=== PATIENT | male | born 1945 | race Caucasian/White ===

== ENCOUNTER 2024-07-04 09:40 | Day surgery (SDC) | payer MEDICARE ==
[2024-07-04] MEDS ORDERED: LACTATED RINGERS 1,000 ML BAG ONE (10:15)
[2024-07-04] MEDS ORDERED: PROPOFOL 10 MG/ML 20 ML VIAL IV ONE (11:18)
--- NOTE | 2024-07-27 15:09 | P.PCN ---
Date of Procedure: 07/04/24 Procedure(s) Performed: Patient and him for the procedure was performed on 07/04/2024 Procedure performed colonoscopy with snare polypectomy and biopsy and tattooing with Janae ink Procedure: The scope was advanced all the way into the cecum. In the ascending colon there was a 1 cm polyp that was removed by snare polypectomy. In the rectosigmoid colon there was a 4 to 5 mm brown polypoid lesion extending from 16 to 24 cm from the anal verge and multiple biopsies were done from this area following followed by tattooing with Janae ink.
== END 2024-07-04 12:40 | disposition home or self-care (01) ==
LOC: ORWHC2ENDO 09:40
PROVIDERS: ATTEND Internal Medicine Gastroenterology
DX: Z12.11 Encounter for screening for malignant neoplasm of colon (principal); D12.2 Benign neoplasm of ascending colon; D12.5 Benign neoplasm of sigmoid colon; H91.90 Unspecified hearing loss, unspecified ear; Z79.899 Other long term (current) drug therapy; Z98.890 Other specified postprocedural states; Z86.010 Personal history of colon polyps
CPT/HCPCS: 45380; 45385; 88305

== ENCOUNTER → 2024-08-01 | Outpatient (CLI) | payer MEDICARE ==
[2024-08-01 18:15] LABS: Basophils # (A) 0.05 X 10*3/uL (0.00-0.10); Basophils % (A) 0.5 %; Eosinophils # (A) 0.29 X 10*3/uL (0.04-0.35); Eosinophils % (A) 2.9 %; HCT 44.4 % (39.6-50.0); HGB 14.7 g/dL (13.0-17.0); Lymphocytes # (A) 2.32 X 10*3/uL (0.90-5.00); Lymphocytes % (A) 23.6 %; MCH 31.9 pg (27.0-32.0); MCHC 33.1 g/dL (32.0-37.0); MCV 96.3 FL (80.0-97.0); Mean Platelet Volume 10.4 FL (9.5-12.2); Monocytes % (A) 11.2 %; NRBC Per 100 WBC 0 X 10*3/uL (0.00-0.01); Neutrophils # (A) 6.05 X 10*3/uL (1.80-7.70); Neutrophils % (A) 61.5 %; Platelet Count 317 X 10*3/uL (140-440); RBC 4.61 X 10*6/uL (4.40-5.60); WBC 9.84 X 10*3/uL (4.50-10.00)
== END | disposition home or self-care (01) ==
LOC: LABPAT 13:55
PROVIDERS: ATTEND Surgery
DX: Z01.818 Encounter for other preprocedural examination (principal)
CPT/HCPCS: 85025; 86850; 86900; 86901

== ENCOUNTER 2024-08-06 07:02 | Inpatient (IN) | payer MEDICARE ==
[~2024-08-06 07:02] MED LIST: HYDROmorphone 0.5 MG/0.5 ML SYRINGE IVP PRN
[2024-08-06] MEDS: IV FLUID CONTINUATION 1,000 ML IV ONE ×2 (07:59→10:43)
[2024-08-06] MEDS: LACTATED RINGERS 1,000 ML IV SCH (08:00)
[2024-08-06] MEDS: ACETAMINOPHEN TAB 500 MG TAB PO PRN (08:07)
[2024-08-06] MEDS: MIDAZOLAM 2 MG/2 ML VIAL IV PRN (08:11)
[2024-08-06] MEDS: ONDANSETRON 4 MG/2 ML VIAL IVP ONE (08:13)
[2024-08-06] MEDS: DEXAMETHASONE SOD PHOSPHATE 4 MG/ML 1 ML VIAL IV ONE (08:14)
[2024-08-06] MEDS: HEPARIN SODIUM,PORCINE 5,000 UNIT/ML 1 ML VIAL SQ PRN (08:15)
[2024-08-06] MEDS ORDERED: NALOXONE 0.4 MG/ML 1 ML VIAL IV PRN (08:37)
--- NOTE | 2024-08-06 08:37 | P.ANPRN ---
Procedure Note - Anesthesia - Epidural/Spinal Epidural Continuous Time Out Performed: Yes Date of Procedure: 08/06/24 Procedure Start Time: 08:10 Procedure Stop Time: 08:18 Location of Patient: PreOp Indication: Acute Post-Operative Pain, Analgesia, Requested by Surgeon Sedation Type: Sedate with meaningful contact maintained Preparation: Sterile Prep Position: Sitting Catheter: Indwelling Needle Guage: 18 Narrative: Test dose with 3 mL of 1.5% lidocaine with epinephrine. Negative signs or symptoms. Needle entry site L2-L3. Negative CSF, negative blood, negative paresthesia. Blood Aspirated: No Pain Paresthesia on Injection Noted: No Events: Uneventful and Well Tolerated
[2024-08-06] MEDS: ALVIMOPAN 12 MG CAPSULE PO STA (08:39)
[2024-08-06] MEDS ORDERED: SUCCINYLCHOLINE CHLORIDE 200 MG/10 ML VIAL IV ONE (09:20)
[2024-08-06] MEDS ORDERED: PROPOFOL 10 MG/ML 20 ML VIAL IV ONE (09:20)
[2024-08-06] MEDS ORDERED: GLYCOPYRROLATE 0.2 MG/ML 2 ML VIAL ONE (09:20)
[2024-08-06] MEDS ORDERED: PHENYLEPHRINE-0.9% NACL SYG 1,000 MCG/10 ML SYRINGE ONE (09:20)
[2024-08-06] MEDS ORDERED: fentaNYL (PF) 50 MCG/ML 2 ML AMP ONE (09:20)
[2024-08-06] MEDS ORDERED: ROCURONIUM 10 MG/ML (5 ML VIAL) IV ONE (09:20)
[2024-08-06] MEDS ORDERED: LIDOCAINE 1% INJ 10MG/ML (20 ML MDV) ONE (09:20)
[2024-08-06] MEDS ORDERED: NEOSTIGMINE 1 MG/ML 10 ML VIAL ONE (09:20)
[2024-08-06 09:27] LABS: ALT 16 U/L (4-49); AST 24 U/L (17-59); African American GFR (CKD) 72 (>60 ml/min/1.73 sqM); Albumin 3.5 g/dL (3.5-5.0); Alkaline Phosphatase 64 U/L (38-126); Anion Gap 7 mmol/L; Blood Urea Nitrogen 17 mg/dL (9-20); Calcium 8.9 mg/dL (8.4-10.2); Carbon Dioxide 29 mmol/L (22-30); Chloride 105 mmol/L (98-107); Glucose 94 mg/dL (74-99); Non-African American GFR(CKD) 62 (>60 ml/min/1.73 sqM); Potassium 3.9 mmol/L (3.5-5.1); Sodium 141 mmol/L (137-145); Total Bilirubin 0.8 mg/dL (0.2-1.3); Total Protein 6.4 g/dL (6.3-8.2)
[2024-08-06] MEDS: metroNIDAZOLE-NS PMX 500 MG in SALINE 1 100ML.BAG IVPB PRN (09:59)
[2024-08-06] MEDS ORDERED: ONDANSETRON 4 MG/2 ML VIAL IVP PRN (11:26)
[2024-08-06] MEDS ORDERED: HYDROmorphone 1 MG/ML 1 ML SYRINGE IVP PRN (11:26)
--- NOTE | 2024-08-06 11:47 | P.OP ---
Date of Procedure: 08/06/24 Preoperative Diagnosis: Colon polyp Postoperative Diagnosis: Deferred the pathology Procedure(s) Performed: Low anterior resection Anesthesia: ADA Surgeon: Billy Rice Estimated Blood Loss (ml): 25 Pathology: other (Rectosigmoid) Condition: stable Disposition: PACU Description of Procedure: The patient was placed on the operative table in the supine position. He received general endotracheal paresthesia. He was then placed in the dorsal thigh position. His abdomen was prepped and draped you sterile fashion. A low midline skin incision was made. Then use electrocautery the abdominal wall was divided. The Bookwalter tract placed the wound. The colon was examined. The patient had a tattoo senthil in the distal rectum. The large colon polyp in the palpated at the rectosigmoid junction. An enterotomy was made in the sigmoid colon. And then the anvil for the 29 mm EEA stapler was placed into the colon. And then the colon was transected with a BLANCA stapler. The enterotomy was closed with 3-0 GI silk suture. The enterotomy was on the specimen side. . Then using the LigaSure device the mesentery of the rectosigmoid was divided. The rectum was then transected with a contour stapler. Next the operator assistant i cementing went below. The anus was dilated with the anal dilators. In the 29 mm EEA stapler is placed in the patient's anus and the spike was driven through the anterior rectal wall. The endoscope to the stapler. The staple was then closed and fired. 2 intact tissue rings were withdrawn. The rectum was insufflated with air insufflation the emergency sigmoidoscope and there was no evidence of extravasation. The eye was irrigated. There is no bleeding seen. The fascia closed looped #1 PDS suture. Skin was low linh. Patient Toller procedure well. He sent to recovery room in stable condition.
[2024-08-06] MEDS: D5-0.45% NACL WITH KCL 20MEQ/L 1,000 ML IV SCH (15:36)
[2024-08-06] MEDS: HEPARIN SODIUM,PORCINE 5,000 UNIT/ML 1 ML VIAL SQ SCH (15:41)
[2024-08-06] MEDS: BENZOCAINE/MENTHOL LOZENG 1 EACH LOZENGE MUCOUS MEM PRN (17:24)
[2024-08-06] MEDS: FAMOTIDINE 20 MG/2 ML VIAL IV SCH (21:32)
--- NOTE | 2024-08-07 08:32 | P.PN ---
Progress Note - Text Progress Note Date: 08/07/24 Postoperative day # status post low anterior resection ,epidural catheter placed for postoperative analgesia, patient doing well epidural site okay, patient currently on combination of epidural infusion solution of Ropivacaine 0.0625% and Dilaudid 20 g per mL the infusion rate at 8 ml per hour , patient had no motor deficit epidural site okay , vital signs stable ,VAS 2 /10 , Assessment and plan= post operative day #1 patient doing well ,pain well controlled , there is no anesthesia related complications
[2024-08-07] MEDS: ALVIMOPAN 12 MG CAPSULE PO SCH (09:16)
--- NOTE | 2024-08-07 10:50 | P.CONS ---
History of Present Illness - History of Present Illness Patient is a pleasant 78-year-old male admitted for complaint of colonic polyp a nd underwent rectosigmoid resection. Patient is still coming out of anesthesia did not provide me much of the history although clinically doing well he is on oxygen postsurgery. REVIEW OF SYSTEMS: All other systems are negative except those mentioned in the HPI PHYSICAL EXAMINATION: GENERAL: The patient is alert and oriented x3, not in any acute distress. Well developed, well nourished. HEENT: Pupils are round and equally reacting to light. EOMI. No scleral icterus. No conjunctival pallor. Normocephalic, atraumatic. No pharyngeal erythema. No thyromegaly. CARDIOVASCULAR: S1 and S2 present. No murmurs, rubs, or gallops. PULMONARY: Chest is clear to auscultation, no wheezing or crackles. ABDOMEN: Soft, nontender, nondistended, normoactive bowel sounds. No palpable organomegaly. MUSCULOSKELETAL: No joint swelling or deformity. EXTREMITIES: No cyanosis, clubbing, or pedal edema. NEUROLOGICAL: Gross neurological examination did not reveal any focal deficits. SKIN: No rashes. Assessment and plan -Rectosigmoid resection patient is clinically doing well at this time. Will m onitor the patient for any complications in the perioperative. -COPD without any acute exacerbation patient quit smoking in 2003 DVT prophylaxis: As per primary service Past Medical History Past Medical History: No Reported History, COPD Additional Past Medical History / Comment(s): pt. not sure if he has COPD or not, seasonal allergies History of Any Multi-Drug Resistant Organisms: None Reported Past Surgical History: Back Surgery Additional Past Surgical History / Comment(s): SPINAL CORD SURGERY, neck surgery, skin cancer removed under Rt. eye Past Anesthesia/Blood Transfusion Reactions: No Reported Reaction Past Psychological History: No Psychological Hx Reported Smoking Status: Former smoker Past Alcohol Use History: Rare Additional Past Alcohol Use History / Comment(s): quit smoking 2003 Past Drug Use History: None Reported - Past Family History Father Family Medical History: Asthma, COPD Sister(s) Family Medical History: Asthma Daughter(s) Family Medical History: Asthma Medications and Allergies Home Medications Medication Instructions Recorded Confirmed Type Multivitamin [Men's Multi-Vitamin] 1 tab PO DAILY 10/14/16 08/06/24 History Cholecalciferol [Vitamin D3 (25 25 mcg PO DAILY 08/01/24 08/01/24 History Mcg = 1000 Iu)] Loratadine [Claritin] 10 mg PO DAILY 08/01/24 08/01/24 History Allergies Allergy/AdvReac Type Severity Reaction Status Date / Time No Known Allergies Allergy Verified 08/01/24 12:20 Physical Exam Vitals: Vital Signs Temp Pulse Resp BP Pulse Ox 08/07/24 07:18 98.0 F 77 18 105/62 94 L 08/07/24 00:42 98.7 F 74 16 120/67 93 L 08/06/24 19:13 98.3 F 73 16 106/62 97 08/06/24 16:37 96 08/06/24 13:30 97.5 F L 51 L 17 111/62 97 08/06/24 12:56 54 L 16 111/63 97 08/06/24 12:20 47 L 18 104/61 97 08/06/24 11:50 46 L 15 105/58 97 08/06/24 11:35 46 L 17 113/61 97 08/06/24 11:21 46 L 15 97/55 97 08/06/24 11:05 51 L 16 103/55 97 08/06/24 10:50 97.2 F L 58 L 17 110/69 96 Intake and Output 08/06/24 08/07/24 08/07/24 22:59 06:59 14:59 Output Total 850 Balance -850 Output: Urine 850 Other: Voiding Method Indwelling Catheter Indwelling Catheter Results CBC & Chem 7: 08/06/24 07:55
--- NOTE | 2024-08-07 11:20 | P.PN ---
Subjective Progress Note Date: 08/07/24 CHIEF COMPLAINT: Colon polyp HISTORY OF PRESENT ILLNESS: Patient is postop day #1 status post lower anterior resection for colon polyp. Patient has epidural for pain control. Patient reports his pain is controlled. Denies any nausea or vomiting. He does report having passed a small amount of flatus. Afebrile. Patient seen and examined with Dr. Rice PHYSICAL EXAM: VITAL SIGNS: Reviewed. GENERAL: Well-developed in no acute distress. ABDOMEN: Soft. Nondistended. Prevena wound VAC intact NEUROLOGIC: Alert and oriented. Cranial nerves II through XII grossly intact. ASSESSMENT: 1. Colon polyp status post lower anterior resection PLAN: -Follow-up on pathology results -Continue epidural for pain control -Continue Meadows catheter -Continue clear liquid diet -Continue IV fluids -Encourage patient to increase activity. Have patient up in chair and ambulating. -Consult PT OT -DVT prophylaxis subcu heparin and GI prophylaxis Pepcid Physician Jd Edwards Developer note has been reviewed by physician. Signing provider agrees with the documented findings, assessment, and plan of care. Objective - Vital Signs Vital signs: Vital Signs Temp 98.0 F 08/07/24 07:18 Pulse 77 08/07/24 07:18 Resp 18 08/07/24 07:18 BP 105/62 08/07/24 07:18 Pulse Ox 94 L 08/07/24 07:18 FiO2 Intake & Output 08/06/24 08/07/24 08/07/24 18:59 06:59 18:59 Intake Total 1500 Output Total 350 850 Balance 1150 -850 Weight 94 kg Intake: IV 1500 Output: Urine 300 850 Estimated Blood Loss 50 Other: Voiding Method Indwelling Catheter Indwelling Catheter - Labs CBC & Chem 7: 08/06/24 07:55
[2024-08-07] MEDS: ROPIVACAINE 250 MG, HYDROMORPHONE (PF) 5 MG in SODIUM CHLORIDE 0.9% 200 ML EPIDURAL PRN (16:26)
[2024-08-07] MEDS: METOCLOPRAMIDE 5 MG/ML 2 ML VIAL IVP PRN (17:58)
[2024-08-08] MEDS: LORATADINE 10 MG TAB PO SCH (09:01)
--- NOTE | 2024-08-08 09:21 | P.PN ---
Progress Note - Text 08/08/24 636am 78-year-old male status post explore lap, patient has an epidural catheter with a solution running at 8 cc an hour with a VAS of 0. No motor or sensory deficit noted. Plan to continue epidural infusion
[2024-08-08] MEDS: TAMSULOSIN 0.4 MG CAP.ER.24H PO SCH (12:35)
[2024-08-08 13:21] LABS: African American GFR (CKD) 84 (>60 ml/min/1.73 sqM); Anion Gap 6 mmol/L; Blood Urea Nitrogen 12 mg/dL (9-20); Calcium 8.1 mg/dL (8.4-10.2); Carbon Dioxide 24 mmol/L (22-30); Chloride 103 mmol/L (98-107); Glucose 143 mg/dL (74-99); Non-African American GFR(CKD) 72 (>60 ml/min/1.73 sqM); Potassium 4.9 mmol/L (3.5-5.1); Sodium 133 mmol/L (137-145)
[2024-08-08 13:22] LABS: Magnesium 1.7 mg/dL (1.6-2.3)
[2024-08-08 13:25] LABS: Basophils # (A) 0.1 k/uL (0-0.2); Basophils % (A) 1 %; Eosinophils # (A) 0.2 k/uL (0-0.7); Eosinophils % (A) 1 %; HCT 42.5 % (39.0-53.0); Lymphocytes # (A) 1.1 k/uL (1.0-4.8); Lymphocytes % (A) 8 %; MCH 32.8 pg (25.0-35.0); MCHC 33.1 g/dL (31.0-37.0); MCV 99.2 fL (80.0-100.0); Mean Platelet Volume 8.1; Monocytes # (A) 0.8 k/uL (0-1.0); Monocytes % (A) 6 %; Neutrophils # (A) 11.1 k/uL (1.3-7.7); Neutrophils % (A) 83 %; Platelet Count 246 k/uL (150-450); RBC 4.28 m/uL (4.30-5.90); RDW 12.9 % (11.5-15.5); WBC 13.4 k/uL (3.8-10.6)
--- NOTE | 2024-08-08 13:41 | P.PN ---
Subjective Progress Note Date: 08/08/24 CHIEF COMPLAINT: Colon polyp HISTORY OF PRESENT ILLNESS: Patient is postop day #2 status post lower anterior resection for colon polyp. Patient has epidural for pain control. Meadows catheter was discontinued and patient had evidence of urinary retention. Due to patient still having a epidural Meadows catheter is being reinserted. Patient reports his pain is tolerable. Denies any nausea or vomiting. Denies any flatus. Did have a temp of 100.2 last night. P Patient seen and examined with Dr. Rice PHYSICAL EXAM: VITAL SIGNS: Reviewed. GENERAL: Well-developed in no acute distress. ABDOMEN: Soft. Nondistended. Prevena wound VAC intact NEUROLOGIC: Alert and oriented. Cranial nerves II through XII grossly intact. ASSESSMENT: 1. Colon polyp status post lower anterior resection PLAN: -Follow-up on pathology results -Epidural and Meadows catheter to be discontinued tomorrow -Patient started on Flomax for urinary retention -Continue clear liquid diet -Continue IV fluids -Encourage patient to increase activity. Have patient up in chair and ambulating. Discussed with nursing staff -Consult PT OT -DVT prophylaxis subcu heparin and GI prophylaxis Pepcid Physician Lecturer In Computer Science note has been reviewed by physician. Signing provider agrees with the documented findings, assessment, and plan of care. Objective - Vital Signs Vital signs: Vital Signs Temp 98.3 F 08/08/24 12:43 Pulse 90 08/08/24 12:43 Resp 15 08/08/24 12:43 BP 109/64 08/08/24 12:43 Pulse Ox 92 L 08/08/24 12:43 FiO2 Intake & Output 08/07/24 08/08/24 08/08/24 18:59 06:59 18:59 Output Total 650 600 380 Balance -650 -600 -380 Output: Urine 650 600 380 Uretheral (Meadows) 600 380 Other: Voiding Method Indwelling Catheter Indwelling Catheter - Labs CBC & Chem 7: 08/08/24 12:50 08/08/24 12:50 Labs: Abnormal Lab Results - Last 24 Hours (Table) 08/08/24 08/08/24 Range/Units 12:50 12:50 WBC 13.4 H (3.8-10.6) k/uL RBC 4.28 L (4.30-5.90) m/uL Neutrophils # 11.1 H (1.3-7.7) k/uL Sodium 133 L (137-145) mmol/L Glucose 143 H (74-99) mg/dL Calcium 8.1 L (8.4-10.2) mg/dL
--- NOTE | 2024-08-09 06:31 | P.PN ---
Progress Note - Text Progress Note Date: 08/09/24 S/P Low Ant Resection. POD#3. Epidural rate is 0 cc/h (bag is empty. Pain control is good 0/10. No anesthesia related complications. Epidural was removed. Tip is intact. Pain control is per primary service.
[2024-08-09 08:44] LABS: HCT 38.6 % (39.6-50.0); HGB 12.8 g/dL (13.0-17.0); MCH 32.2 pg (27.0-32.0); MCHC 33.2 g/dL (32.0-37.0); MCV 97.2 FL (80.0-97.0); Mean Platelet Volume 10.5 FL (9.5-12.2); NRBC Per 100 WBC 0 X 10*3/uL (0.00-0.01); Platelet Count 265 X 10*3/uL (140-440); RBC 3.97 X 10*6/uL (4.40-5.60); RDW 12.6 % (11.5-14.5); WBC 13.94 X 10*3/uL (4.50-10.00)
[2024-08-09 08:45] LABS: BUN/Creat Ratio 9.45 Ratio (12.00-20.00); Blood Urea Nitrogen 10.4 mg/dL (9.0-27.0); Calcium 8.4 mg/dL (8.7-10.3); Carbon Dioxide 26.3 mmol/L (21.6-31.8); Chloride 101 mmol/L (96-109); Glucose 117 mg/dL (70-110); Magnesium 1.7 mg/dL (1.5-2.4); Potassium 4.4 mmol/L (3.5-5.5); Sodium 136 mmol/L (135-145)
--- NOTE | 2024-08-09 09:09 | P.PN ---
Subjective Progress Note Date: 08/08/24 - History of Present Illness Patient is a pleasant 78-year-old male admitted for complaint of colonic polyp and underwent rectosigmoid resection. Patient is still coming out of anesthesia did not provide me much of the history although clinically doing well he is on oxygen postsurgery. 08/08/2024 Patient is seen today sitting up in the chair and had to have indwelling fisher catheter replaced for retention. Patient has been started on flomax. Patient continues on clear liquids and has some abdominal discomfort and generalized weakness but remains on a pain pump at this time. No bowel activity as of yet. Patient reports to belching a lot, but no flatus. Patient is afebrile and wbc is mildly elevated. Patient denies any chest pain or shortness of breath and is currently on room air above 90%. Review of systems: Constitutional: No reports of fatigue, fever, or chills Cardiovascular: No reports of chest pain or palpitations Respiratory: No reports of shortness of breath or cough GI: No reports of nausea, vomiting, or diarrhea : No reports of dysuria , was having retention Neurovascular: reports of generalized weakness All other systems are negative except those mentioned in the HPI PHYSICAL EXAMINATION: GENERAL: The patient is alert and oriented x3, not in any acute distress. Well developed, well nourished. HEENT: Pupils are round and equally reacting to light. EOMI. No scleral icterus. No conjunctival pallor. Normocephalic, atraumatic. No pharyngeal erythema. No thyromegaly. CARDIOVASCULAR: S1 and S2 present. No murmurs, rubs, or gallops. PULMONARY: Chest is clear to auscultation, no wheezing or crackles. ABDOMEN: Soft, nontender, nondistended, normoactive bowel sounds. No palpable organomegaly. MUSCULOSKELETAL: No joint swelling or deformity. EXTREMITIES: No cyanosis, clubbing, or pedal edema. NEUROLOGICAL: Gross neurological examination did not reveal any focal deficits. SKIN: No rashes. Assessment and plan -Rectosigmoid resection patient is clinically doing well at this time. Will monitor the patient for any complications in the post op phase. -COPD without any acute exacerbation patient quit smoking in 2003 -urinary retention requiring indwelling fisher catheter -GI prophylaxis -DVT prophylaxis: As per primary service -full code Plan: We will continue to follow with general surgery initiate flomax and trial void once epidural is removed PT/OT to eval continue to encourage IS 10 x per hour Thank you for this consultation, we will continue to follow with surgery. The impression and plan of care has been dictated by Lilliam Bajwa, Nurse Practitioner as directed. MD Guido I have performed a history and examination and MDM of this patient, discussed the same with the dictator, and agree with the dictator's assessment and plan as written ,documented as a scribe. Based on total visit time, I have performed more than 50% of the visit. Objective - Vital Signs Vital signs: Vital Signs Temp 98.3 F 08/08/24 06:59 Pulse 90 08/08/24 06:59 Resp 14 08/08/24 06:59 BP 110/65 08/08/24 06:59 Pulse Ox 92 L 08/08/24 06:59 FiO2 Intake & Output 08/07/24 08/08/24 08/08/24 18:59 06:59 18:59 Output Total 650 600 380 Balance -650 -600 -380 Output: Urine 650 600 380 Uretheral (Fisher) 600 380 Other: Voiding Method Indwelling Catheter Indwelling Catheter - Labs CBC & Chem 7: 08/09/24 05:02 08/09/24 05:02
[2024-08-09 09:15] LABS: Basophils # (A) 0.05 X 10*3/uL (0.00-0.10); Basophils % (A) 0.4 %; Eosinophils # (A) 0.31 X 10*3/uL (0.04-0.35); Eosinophils % (A) 2.2 %; Lymphocytes # (A) 1.58 X 10*3/uL (0.90-5.00); Lymphocytes % (A) 11.3 %; Monocytes # (A) 1.56 X 10*3/uL (0.20-1.00); Monocytes % (A) 11.2 %; Neutrophils # (A) 10.37 X 10*3/uL (1.80-7.70); Neutrophils % (A) 74.4 %; RBC Morphology Normal (Normal)
[2024-08-09] MEDS: METOCLOPRAMIDE 5 MG/ML 2 ML VIAL IVP SCH (12:07)
--- NOTE | 2024-08-09 15:33 | P.PN ---
Subjective Progress Note Date: 08/09/24 CHIEF COMPLAINT: Colon polyp HISTORY OF PRESENT ILLNESS: Patient is postop day #3 status post lower anterior resection for colon polyp. Epidural discontinued this morning. Patient complains of feeling more bloated abdomen is distended. He denies any flatus. He has been nauseous with a little spit up. Afebrile. WBC 13.94 PHYSICAL EXAM: VITAL SIGNS: Reviewed. GENERAL: Well-developed in no acute distress. ABDOMEN: Distended. Prevena wound VAC intact NEUROLOGIC: Alert and oriented. Cranial nerves II through XII grossly intact. ASSESSMENT: 1. Colon polyp status post lower anterior resection 2. Postoperative ileus can be an expected finding after surgery PLAN: -Downgrade diet to n.p.o except ice chips and medications. Reglan added for postoperative ileus -Follow-up on pathology results -Epidural and Meadows catheter to be discontinued today -Continue Flomax for urinary retention -Continue IV fluids -Encourage patient to ambulate in hallway -Consult PT OT -DVT prophylaxis subcu heparin and GI prophylaxis Pepcid Physician Aerospace Medicine Physician note has been reviewed by physician. Signing provider agrees with the documented findings, assessment, and plan of care. Objective - Vital Signs Vital signs: Vital Signs Temp 98.4 F 08/09/24 13:53 Pulse 80 08/09/24 13:53 Resp 18 08/09/24 13:53 BP 123/67 08/09/24 13:53 Pulse Ox 91 L 08/09/24 13:53 FiO2 Intake & Output 08/08/24 08/09/24 08/09/24 18:59 06:59 18:59 Intake Total 380 Output Total 880 475 Balance -500 -475 Intake: Oral 380 Output: Urine 880 475 Uretheral (Meadows) 380 Other: Voiding Method Indwelling Catheter Indwelling Catheter Indwelling Catheter - Labs CBC & Chem 7: 08/09/24 05:02 08/09/24 05:02 Labs: Abnormal Lab Results - Last 24 Hours (Table) 08/09/24 08/09/24 Range/Units 05:02 05:02 WBC 13.94 H (4.50-10.00) X 10*3/uL RBC 3.97 L (4.40-5.60) X 10*6/uL Hgb 12.8 L (13.0-17.0) g/dL Hct 38.6 L (39.6-50.0) % MCV 97.2 H (80.0-97.0) FL MCH 32.2 H (27.0-32.0) pg Immature Gran # 0.07 H (0.00-0.04) X 10*3/uL Neutrophils # 10.37 H (1.80-7.70) X 10*3/uL Monocytes # 1.56 H (0.20-1.00) X 10*3/uL BUN/Creatinine Ratio 9.45 L (12.00-20.00) Ratio Glucose 117 H (70-110) mg/dL Calcium 8.4 L (8.7-10.3) mg/dL
--- NOTE | 2024-08-10 05:25 | P.PN ---
Subjective Progress Note Date: 08/09/24 - History of Present Illness Patient is a pleasant 78-year-old male admitted for complaint of colonic polyp and underwent rectosigmoid resection. Patient is still coming out of anesthesia did not provide me much of the history although clinically doing well he is on oxygen postsurgery. 08/08/2024 Patient is seen today sitting up in the chair and had to have indwelling fisher catheter replaced for retention. Patient has been started on flomax. Patient continues on clear liquids and has some abdominal discomfort and generalized weakness but remains on a pain pump at this time. No bowel activity as of yet. Patient reports to belching a lot, but no flatus. Patient is afebrile and wbc is mildly elevated. Patient denies any chest pain or shortness of breath and is currently on room air above 90%. 08/09/2024 Patient is seen in follow-up today appears extremely uncomfortable and bloated with increased abdominal distention. Patient reports he feels extremely bloated and uncomfortable and is not passing gas. Patient also placed back on 2 L as he reported some shortness of breath overnight and reports has been unable to take deep breaths and do the I-S due to his abdominal distention and discomfort. Patient continues with indwelling Fisher catheter and epidural pain pump is being discontinued. Per surgery patient is being placed on n.p.o. and Reglan is being started. Will add gas drops for supportive care. Patient has been instructed to increase activity as tolerated and walk frequently. Review of systems: Constitutional: No reports of fatigue, fever, or chills Cardiovascular: No reports of chest pain or palpitations Respiratory: reports of intermittent shortness of breath, denies cough GI: No reports of nausea, vomiting, or diarrhea, reports feeling extreme abdominal distention and bloating : No reports of dysuria , was having retention Neurovascular: reports of generalized weakness All other systems are negative except those mentioned in the HPI PHYSICAL EXAMINATION: GENERAL: The patient is alert and oriented x3, appears mildly anxious and agitated. Well developed, elderly appearing. HEENT: Pupils are round and equally reacting to light. EOMI. No scleral icterus. No conjunctival pallor. Normocephalic, atraumatic. No pharyngeal erythema. No thyromegaly. CARDIOVASCULAR: S1 and S2 muffled PULMONARY: Diminished breath sounds bilaterally otherwise chest is clear to auscultation, no wheezing or crackles. ABDOMEN: Soft, tender, more distended, hypoactive bowel sounds. No palpable organomegaly. MUSCULOSKELETAL: No joint swelling or deformity. EXTREMITIES: No cyanosis, clubbing, or pedal edema. NEUROLOGICAL: Gross neurological examination did not reveal any focal deficits. SKIN: No rashes. Assessment and plan -Rectosigmoid resection -COPD without any acute exacerbation patient quit smoking in 2003 -urinary retention requiring indwelling fisher catheter -GI prophylaxis -DVT prophylaxis: As per primary service -full code Plan: We will continue to follow with general surgery Continue flomax and trial void once epidural is removed Patient with increased distention and bloating and denies flatus or bowel movement, patient being started on Reglan and patient being placed back on n.p.o. and recommend simethicone drops PT/OT to eval Encouraged to increase activity as tolerated continue to encourage IS 10 x per hour. Patient has been refusing to use as he reports his abdominal bloating and distention is not allowing him to use the incentive spirometer Thank you for this consultation, we will continue to follow with surgery. The impression and plan of care has been dictated by Lilliam Bajwa, Nurse Practitioner as directed. Dr. Nicolle MD I have performed a history and examination and MDM of this patient, discussed the same with the dictator, and agree with the dictator's assessment and plan as written ,documented as a scribe. Based on total visit time, I have performed more than 50% of the visit. Objective - Vital Signs Vital signs: Vital Signs Temp 97.8 F 08/09/24 07:19 Pulse 96 08/09/24 07:19 Resp 18 08/09/24 07:19 BP 131/73 08/09/24 07:19 Pulse Ox 90 L 08/09/24 07:19 FiO2 Intake & Output 08/08/24 08/09/24 08/09/24 18:59 06:59 18:59 Intake Total 380 Output Total 880 475 Balance -500 -475 Intake: Oral 380 Output: Urine 880 475 Uretheral (Fisher) 380 Other: Voiding Method Indwelling Catheter Indwelling Catheter Indwelling Catheter - Labs CBC & Chem 7: 08/09/24 05:02 08/09/24 05:02 Labs: Abnormal Lab Results - Last 24 Hours (Table) 08/08/24 08/08/24 08/09/24 Range/Units 12:50 12:50 05:02 WBC 13.4 H 13.94 H (3.8-10.6) k/uL RBC 4.28 L 3.97 L (4.30-5.90) m/uL Hgb 12.8 L (13.0-17.0) g/dL Hct 38.6 L (39.6-50.0) % MCV 97.2 H (80.0-97.0) FL MCH 32.2 H (27.0-32.0) pg Neutrophils # 11.1 H (1.3-7.7) k/uL Sodium 133 L (137-145) mmol/L BUN/Creatinine Ratio (12.00-20.00) Ratio Glucose 143 H (74-99) mg/dL Calcium 8.1 L (8.4-10.2) mg/dL 08/09/24 Range/Units 05:02 WBC (3.8-10.6) k/uL RBC (4.30-5.90) m/uL Hgb (13.0-17.0) g/dL Hct (39.6-50.0) % MCV (80.0-97.0) FL MCH (27.0-32.0) pg Neutrophils # (1.3-7.7) k/uL Sodium (137-145) mmol/L BUN/Creatinine Ratio 9.45 L (12.00-20.00) Ratio Glucose 117 H (74-99) mg/dL Calcium 8.4 L (8.4-10.2) mg/dL
[2024-08-10 09:30] LABS: Basophils % (A) 0 %; Eosinophils # (A) 0.2 k/uL (0-0.7); Eosinophils % (A) 2 %; HCT 40.6 % (39.0-53.0); HGB 13.7 gm/dL (13.0-17.5); Lymphocytes # (A) 1.2 k/uL (1.0-4.8); Lymphocytes % (A) 11 %; MCH 32.7 pg (25.0-35.0); MCHC 33.7 g/dL (31.0-37.0); MCV 96.9 fL (80.0-100.0); Mean Platelet Volume 7.8; Monocytes # (A) 0.8 k/uL (0-1.0); Monocytes % (A) 8 %; Neutrophils # (A) 8.2 k/uL (1.3-7.7); Neutrophils % (A) 77 %; Platelet Count 312 k/uL (150-450); RBC 4.19 m/uL (4.30-5.90); RDW 12.8 % (11.5-15.5); WBC 10.7 k/uL (3.8-10.6)
[2024-08-10 09:45] LABS: African American GFR (CKD) >90 (>60 ml/min/1.73 sqM); Anion Gap 4 mmol/L; Blood Urea Nitrogen 15 mg/dL (9-20); Calcium 8.7 mg/dL (8.4-10.2); Carbon Dioxide 30 mmol/L (22-30); Chloride 103 mmol/L (98-107); Glucose 121 mg/dL (74-99); Non-African American GFR(CKD) 78 (>60 ml/min/1.73 sqM); Potassium 4.5 mmol/L (3.5-5.1); Sodium 137 mmol/L (137-145)
[2024-08-10] MEDS ORDERED: HYDROcodone/APAP 5-325MG 1 EACH TAB PO PRN (11:33)
--- NOTE | 2024-08-10 11:36 | P.PN ---
Subjective Progress Note Date: 08/10/24 CHIEF COMPLAINT: Colon polyp HISTORY OF PRESENT ILLNESS: Patient is postop day #4 status post lower anterior resection for colon polyp. Patient had urinary retention and required Meadows catheter to be reinserted. Patient is having flatus and did have a bowel movement this morning. He reports that his nausea and bloating have improved. Afebrile. WBC 13.9 down to 10.7 PHYSICAL EXAM: VITAL SIGNS: Reviewed. GENERAL: Well-developed in no acute distress. ABDOMEN: Less distended. Soft. Nontender. Prevena wound VAC intact NEUROLOGIC: Alert and oriented. Cranial nerves II through XII grossly intact. ASSESSMENT: 1. Colon polyp status post lower anterior resection 2. Postoperative ileus improving. Can be an expected finding after surgery. 3. Urinary retention has Meadows catheter in place PLAN: -Advance diet to clear liquids -Follow-up on pathology results -Epidural and Meadows catheter to be discontinued today -Continue Flomax for urinary retention -Decrease IV fluids to 75 mL/h -Encourage patient to ambulate in hallway -Consult PT OT -DVT prophylaxis subcu heparin and GI prophylaxis Pepcid Physician T[employer] T[employer] Repairer note has been reviewed by physician. Signing provider agrees with the documented findings, assessment, and plan of care. Objective - Vital Signs Vital signs: Vital Signs Temp 97.9 F 08/10/24 08:22 Pulse 89 08/10/24 08:22 Resp 19 08/10/24 08:22 BP 147/87 08/10/24 08:22 Pulse Ox 95 08/10/24 08:22 FiO2 Intake & Output 08/09/24 08/10/24 08/10/24 18:59 06:59 18:59 Output Total 1000 700 600 Balance -1000 -700 -600 Output: Urine 1000 700 600 Straight 700 Other: Voiding Method Indwelling Catheter Indwelling Catheter # Voids 1 # Bowel Movements 1 - Labs CBC & Chem 7: 08/10/24 09:15 08/10/24 09:15 Labs: Abnormal Lab Results - Last 24 Hours (Table) 08/10/24 08/10/24 Range/Units 09:15 09:15 WBC 10.7 H (3.8-10.6) k/uL RBC 4.19 L (4.30-5.90) m/uL Neutrophils # 8.2 H (1.3-7.7) k/uL Glucose 121 H (74-99) mg/dL
[2024-08-10] MEDS: SIMETHICONE 40 MG/0.6 ML DROPS 2,000 MG/30 ML BOTTLE PO SCH (12:10)
--- NOTE | 2024-08-10 12:53 | P.PN ---
Subjective Progress Note Date: 08/10/24 - History of Present Illness Patient is a pleasant 78-year-old male admitted for complaint of colonic polyp and underwent rectosigmoid resection. Patient is still coming out of anesthesia did not provide me much of the history although clinically doing well he is on oxygen postsurgery. 08/08/2024 Patient is seen today sitting up in the chair and had to have indwelling fisher catheter replaced for retention. Patient has been started on flomax. Patient continues on clear liquids and has some abdominal discomfort and generalized weakness but remains on a pain pump at this time. No bowel activity as of yet. Patient reports to belching a lot, but no flatus. Patient is afebrile and wbc is mildly elevated. Patient denies any chest pain or shortness of breath and is currently on room air above 90%. 08/09/2024 Patient is seen in follow-up today appears extremely uncomfortable and bloated with increased abdominal distention. Patient reports he feels extremely bloated and uncomfortable and is not passing gas. Patient also placed back on 2 L as he reported some shortness of breath overnight and reports has been unable to take deep breaths and do the I-S due to his abdominal distention and discomfort. Patient continues with indwelling Fisher catheter and epidural pain pump is being discontinued. Per surgery patient is being placed on n.p.o. and Reglan is being started. Will add gas drops for supportive care. Patient has been instructed to increase activity as tolerated and walk frequently. 08/10/2024 Patient is evaluated in follow-up sitting up in the chair he states that he feels less bloated and did have a bowel movement. He continues on Entereg. Patient remains on D5 half-normal saline with 20M EQ's of potassium. Started on a clear liquid diet. Blood work today reveals a white blood cell count of 10.7, hemoglobin 13.7, sodium 137, potassium 4.5, BUN of 15, creatinine of 0.94. Magnesium level of 2.0. Review of systems: Constitutional: No reports of fatigue, fever, or chills Cardiovascular: No reports of chest pain or palpitations Respiratory: reports of intermittent shortness of breath, denies cough GI: No reports of nausea, vomiting, or diarrhea, reports feeling extreme abdominal distention and bloating : No reports of dysuria , was having retention Neurovascular: reports of generalized weakness All other systems are negative except those mentioned in the HPI PHYSICAL EXAMINATION: GENERAL: The patient is alert and oriented x3, appears mildly anxious and agitated. Well developed, elderly appearing. HEENT: Pupils are round and equally reacting to light. EOMI. No scleral icterus. No conjunctival pallor. Normocephalic, atraumatic. No pharyngeal erythema. No thyromegaly. CARDIOVASCULAR: S1 and S2 muffled PULMONARY: Diminished breath sounds bilaterally otherwise chest is clear to auscultation, no wheezing or crackles. ABDOMEN: Soft, tender, more distended, hypoactive bowel sounds. No palpable organomegaly. MUSCULOSKELETAL: No joint swelling or deformity. EXTREMITIES: No cyanosis, clubbing, or pedal edema. NEUROLOGICAL: Gross neurological examination did not reveal any focal deficits. SKIN: No rashes. Assessment and plan -Rectosigmoid resection -COPD without any acute exacerbation patient quit smoking in 2003 -urinary retention requiring indwelling fisher catheter -GI prophylaxis -DVT prophylaxis: As per primary service -full code Plan: We will continue to follow with general surgery Continue flomax and trial void once epidural is removed Patient with increased distention and bloating and denies flatus or bowel movement, patient being started on Reglan, simethicone and continues on Reglan he is now having bowel movements and started on a clear liquid diet. PT/OT to eval Encouraged to increase activity as tolerated continue to encourage IS 10 x per hour. Patient has been refusing to use as he reports his abdominal bloating and distention is not allowing him to use the incentive spirometer Thank you for this consultation, we will continue to follow with surgery. The impression and plan of care has been dictated by Analilia Ruth Nurse Practitioner as directed. Dr. Nicolle MD I have performed a history and physical examination and medical decision making of this patient, discussed the same with the dictator, and agree with the dictators assessment and plan as written, documented as a scribe. Based on total visit time, I have performed more than 50% of this visit. Objective - Vital Signs Vital signs: Vital Signs Temp 97.9 F 08/10/24 08:22 Pulse 89 08/10/24 08:22 Resp 19 08/10/24 08:22 BP 147/87 08/10/24 08:22 Pulse Ox 95 08/10/24 08:22 FiO2 Intake & Output 09/12/24 09/13/24 09/13/24 18:59 06:59 18:59 Output Total 1000 700 600 Balance -1000 -700 -600 Output: Urine 1000 700 600 Straight 700 Other: Voiding Method Indwelling Catheter Indwelling Catheter # Voids 1 # Bowel Movements 1 - Labs CBC & Chem 7: 08/10/24 09:15 08/10/24 09:15 Labs: Abnormal Lab Results - Last 24 Hours (Table) 08/10/24 08/10/24 Range/Units 09:15 09:15 WBC 10.7 H (3.8-10.6) k/uL RBC 4.19 L (4.30-5.90) m/uL Neutrophils # 8.2 H (1.3-7.7) k/uL Glucose 121 H (74-99) mg/dL Assessment and Plan Time with Patient: Less than 30
--- NOTE | 2024-08-11 09:12 | P.PN ---
Subjective Progress Note Date: 08/11/24 Patient states he feels tired. He has had some bowel movements. On exam vital signs appear stable. Abdomen is soft. Incisions clean dry intact. Status post low anterior section for large rectal polyp. Patient is progressing. Anticipate discharge home in next 48 hours. Objective - Vital Signs Vital signs: Vital Signs Temp 99.1 F 08/11/24 01:05 Pulse 81 08/11/24 01:05 Resp 17 08/11/24 01:05 BP 137/75 08/11/24 01:05 Pulse Ox 91 L 08/11/24 01:05 FiO2 Intake & Output 08/10/24 08/11/24 08/11/24 18:59 06:59 18:59 Output Total 1950 1200 Balance -1950 -1200 Output: Urine 1950 1200 Other: Voiding Method Indwelling Catheter Indwelling Catheter # Bowel Movements 1 - Labs CBC & Chem 7: 08/10/24 09:15 08/10/24 09:15 Labs: Abnormal Lab Results - Last 24 Hours (Table) 08/10/24 08/10/24 Range/Units 09:15 09:15 WBC 10.7 H (3.8-10.6) k/uL RBC 4.19 L (4.30-5.90) m/uL Neutrophils # 8.2 H (1.3-7.7) k/uL Glucose 121 H (74-99) mg/dL
[2024-08-11 09:42] LABS: Basophils # (A) 0.04 X 10*3/uL (0.00-0.10); Basophils % (A) 0.4 %; Eosinophils # (A) 0.26 X 10*3/uL (0.04-0.35); Eosinophils % (A) 2.7 %; HCT 39.5 % (39.6-50.0); HGB 13.3 g/dL (13.0-17.0); Lymphocytes # (A) 1.69 X 10*3/uL (0.90-5.00); Lymphocytes % (A) 17.4 %; MCH 31.6 pg (27.0-32.0); MCHC 33.7 g/dL (32.0-37.0); MCV 93.8 FL (80.0-97.0); Mean Platelet Volume 10.3 FL (9.5-12.2); Monocytes # (A) 1.34 X 10*3/uL (0.20-1.00); Monocytes % (A) 13.8 %; NRBC Per 100 WBC 0 X 10*3/uL (0.00-0.01); Neutrophils # (A) 6.37 X 10*3/uL (1.80-7.70); Neutrophils % (A) 65.3 %; Platelet Count 357 X 10*3/uL (140-440); RBC 4.21 X 10*6/uL (4.40-5.60); RDW 12.8 % (11.5-14.5); WBC 9.74 X 10*3/uL (4.50-10.00)
[2024-08-11 10:35] LABS: Blood Urea Nitrogen 11.6 mg/dL (9.0-27.0); Calcium 8.4 mg/dL (8.7-10.3); Carbon Dioxide 24.6 mmol/L (21.6-31.8); Chloride 105 mmol/L (96-109); Glucose 111 mg/dL (70-110); Potassium 4.3 mmol/L (3.5-5.5); Sodium 140 mmol/L (135-145)
--- NOTE | 2024-08-11 12:11 | P.PN ---
Subjective Progress Note Date: 08/11/24 - History of Present Illness Patient is a pleasant 78-year-old male admitted for complaint of colonic polyp and underwent rectosigmoid resection. Patient is still coming out of anesthesia did not provide me much of the history although clinically doing well he is on oxygen postsurgery. 08/08/2024 Patient is seen today sitting up in the chair and had to have indwelling fisher catheter replaced for retention. Patient has been started on flomax. Patient continues on clear liquids and has some abdominal discomfort and generalized weakness but remains on a pain pump at this time. No bowel activity as of yet. Patient reports to belching a lot, but no flatus. Patient is afebrile and wbc is mildly elevated. Patient denies any chest pain or shortness of breath and is currently on room air above 90%. 08/09/2024 Patient is seen in follow-up today appears extremely uncomfortable and bloated with increased abdominal distention. Patient reports he feels extremely bloated and uncomfortable and is not passing gas. Patient also placed back on 2 L as he reported some shortness of breath overnight and reports has been unable to take deep breaths and do the I-S due to his abdominal distention and discomfort. Patient continues with indwelling Fisher catheter and epidural pain pump is being discontinued. Per surgery patient is being placed on n.p.o. and Reglan is being started. Will add gas drops for supportive care. Patient has been instructed to increase activity as tolerated and walk frequently. 08/10/2024 Patient is evaluated in follow-up sitting up in the chair he states that he feels less bloated and did have a bowel movement. He continues on Entereg. Patient remains on D5 half-normal saline with 20M EQ's of potassium. Started on a clear liquid diet. Blood work today reveals a white blood cell count of 10.7, hemoglobin 13.7, sodium 137, potassium 4.5, BUN of 15, creatinine of 0.94. Magnesium level of 2.0. 08/11/2024 Patient is eval today in follow-up he is up to the bathroom attempting to have a bowel movement states that he has IBS. He continues on a ride. He is reporting less bloating his abdomen is more soft and less distended. He remains on full liquid diet. Work today reveals a white blood cell count of 9.74, hemoglobin of 13.3, sodium 140, BUN of 11.6, creatinine of 1.0. Review of systems: Constitutional: No reports of fatigue, fever, or chills Cardiovascular: No reports of chest pain or palpitations Respiratory: reports of intermittent shortness of breath, denies cough GI: No reports of nausea, vomiting, or diarrhea, reports feeling extreme abdomin al distention and bloating : No reports of dysuria , was having retention Neurovascular: reports of generalized weakness All other systems are negative except those mentioned in the HPI PHYSICAL EXAMINATION: GENERAL: The patient is alert and oriented x3, appears mildly anxious and agitated. Well developed, elderly appearing. HEENT: Pupils are round and equally reacting to light. EOMI. No scleral icterus. No conjunctival pallor. Normocephalic, atraumatic. No pharyngeal erythema. No thyromegaly. CARDIOVASCULAR: S1 and S2 muffled PULMONARY: Diminished breath sounds bilaterally otherwise chest is clear to auscultation, no wheezing or crackles. ABDOMEN: Soft, tender, more distended, hypoactive bowel sounds. No palpable organomegaly. MUSCULOSKELETAL: No joint swelling or deformity. EXTREMITIES: No cyanosis, clubbing, or pedal edema. NEUROLOGICAL: Gross neurological examination did not reveal any focal deficits. SKIN: No rashes. Assessment and plan -Rectosigmoid resection -COPD without any acute exacerbation patient quit smoking in 2003 -urinary retention requiring indwelling fisher catheter -GI prophylaxis -DVT prophylaxis: As per primary service -full code Plan: We will continue to follow with general surgery Continue flomax and trial void once epidural is removed Patient with increased distention and bloating and denies flatus or bowel movement, patient being started on Reglan, simethicone and continues on Reglan he is now having bowel movements and is being advanced from full liquid to regular as tolerated. PT/OT to al to return home with [facility] on discharge continue to encourage IS 10 x per hour. Is encouraged to be up out of bed and he is tolerating activity Thank you for this consultation, we will continue to follow with surgery. The impression and plan of care has been dictated by Analilia Ruth Nurse Practitioner as directed. Dr. Nicolle MD I have performed a history and physical examination and medical decision making of this patient, discussed the same with the dictator, and agree with the dictators assessment and plan as written, documented as a scribe. Based on total visit time, I have performed more than 50% of this visit. Objective - Vital Signs Vital signs: Vital Signs Temp 98.5 F 08/11/24 07:19 Pulse 77 08/11/24 07:19 Resp 18 08/11/24 07:19 BP 122/68 08/11/24 07:19 Pulse Ox 92 L 08/11/24 07:19 FiO2 Intake & Output 08/10/24 08/11/24 08/11/24 18:59 06:59 18:59 Output Total 1950 1200 Balance -1950 -1200 Output: Urine 1950 1200 Other: Voiding Method Indwelling Catheter Indwelling Catheter Indwelling Catheter # Bowel Movements 1 - Labs CBC & Chem 7: 08/11/24 05:55 08/11/24 05:55 Labs: Abnormal Lab Results - Last 24 Hours (Table) 08/11/24 08/11/24 Range/Units 05:55 05:55 RBC 4.21 L (4.40-5.60) X 10*6/uL Hct 39.5 L (39.6-50.0) % Monocytes # 1.34 H (0.20-1.00) X 10*3/uL BUN/Creatinine Ratio 11.60 L (12.00-20.00) Ratio Glucose 111 H (70-110) mg/dL Calcium 8.4 L (8.7-10.3) mg/dL Assessment and Plan Time with Patient: Less than 30
[2024-08-12 07:10] VITALS: RESP 18
--- NOTE | 2024-08-12 09:46 | P.PN ---
Subjective Progress Note Date: 08/12/24 Patient feels better today. He is tolerating some regular diet. His pain is improved. On exam vital signs are stable. Abdomen is soft. Incision is well-healed. Status post low anterior resection for colon polyp. We dissipate discharge home tomorrow. Objective - Vital Signs Vital signs: Vital Signs Temp 98.2 F 08/12/24 07:09 Pulse 73 08/12/24 07:09 Resp 18 08/12/24 07:09 BP 136/81 08/12/24 07:09 Pulse Ox 90 L 08/12/24 07:09 FiO2 Intake & Output 08/11/24 08/12/24 08/12/24 18:59 06:59 18:59 Output Total 325 Balance -325 Output: Urine 325 Other: Voiding Method Indwelling Catheter Indwelling Catheter # Voids 560 # Bowel Movements 2 - Labs CBC & Chem 7: 08/11/24 05:55 08/11/24 05:55 Labs: Abnormal Lab Results - Last 24 Hours (Table) 08/11/24 Range/Units 05:55 BUN/Creatinine Ratio 11.60 L (12.00-20.00) Ratio Glucose 111 H (70-110) mg/dL Calcium 8.4 L (8.7-10.3) mg/dL
--- NOTE | 2024-08-12 22:03 | P.PN ---
Subjective Progress Note Date: 08/12/24 - History of Present Illness Patient is a pleasant 78-year-old male admitted for complaint of colonic polyp and underwent rectosigmoid resection. Patient is still coming out of anesthesia did not provide me much of the history although clinically doing well he is on oxygen postsurgery. 08/08/2024 Patient is seen today sitting up in the chair and had to have indwelling fisher catheter replaced for retention. Patient has been started on flomax. Patient continues on clear liquids and has some abdominal discomfort and generalized weakness but remains on a pain pump at this time. No bowel activity as of yet. Patient reports to belching a lot, but no flatus. Patient is afebrile and wbc is mildly elevated. Patient denies any chest pain or shortness of breath and is currently on room air above 90%. 08/09/2024 Patient is seen in follow-up today appears extremely uncomfortable and bloated with increased abdominal distention. Patient reports he feels extremely bloated and uncomfortable and is not passing gas. Patient also placed back on 2 L as he reported some shortness of breath overnight and reports has been unable to take deep breaths and do the I-S due to his abdominal distention and discomfort. Patient continues with indwelling Fisher catheter and epidural pain pump is being discontinued. Per surgery patient is being placed on n.p.o. and Reglan is being started. Will add gas drops for supportive care. Patient has been instructed to increase activity as tolerated and walk frequently. 08/10/2024 Patient is evaluated in follow-up sitting up in the chair he states that he feels less bloated and did have a bowel movement. He continues on Entereg. Patient remains on D5 half-normal saline with 20M EQ's of potassium. Started on a clear liquid diet. Blood work today reveals a white blood cell count of 10.7, hemoglobin 13.7, sodium 137, potassium 4.5, BUN of 15, creatinine of 0.94. Magnesium level of 2.0. 08/11/2024 Patient is eval today in follow-up he is up to the bathroom attempting to have a bowel movement states that he has IBS. He continues on a ride. He is reporting less bloating his abdomen is more soft and less distended. He remains on full liquid diet. Work today reveals a white blood cell count of 9.74, hemoglobin of 13.3, sodium 140, BUN of 11.6, creatinine of 1.0. 08/12/2024 Evaluated patient today in follow up on the medical floor. Patient is sitting up in the bed. He has been having multiple bowel movements. His abdominal distention is significantly improved. White blood cell count has normalized to 9.74, hgb 13.3, sodium 140, potassium 4.3, BUN 11.6, creatinine 1.0, glucose 111. He is on room air saturations of 95%, afebrile. Heart rate 93, blood pressure 143/82. Review of systems: Constitutional: No reports of fatigue, fever, or chills Cardiovascular: No reports of chest pain or palpitations Respiratory: reports of intermittent shortness of breath, denies cough GI: No reports of nausea, vomiting, or diarrhea, reports feeling extreme abdominal distention and bloating : No reports of dysuria , was having retention Neurovascular: reports of generalized weakness All other systems are negative except those mentioned in the HPI PHYSICAL EXAMINATION: GENERAL: The patient is alert and oriented x3, appears mildly anxious and agitated. Well developed, elderly appearing. HEENT: Pupils are round and equally reacting to light. EOMI. No scleral icterus. No conjunctival pallor. Normocephalic, atraumatic. No pharyngeal erythema. No thyromegaly. CARDIOVASCULAR: S1 and S2 muffled PULMONARY: Diminished breath sounds bilaterally otherwise chest is clear to auscultation, no wheezing or crackles. ABDOMEN: Soft, tender, more distended, hypoactive bowel sounds. No palpable organomegaly. MUSCULOSKELETAL: No joint swelling or deformity. EXTREMITIES: No cyanosis, clubbing, or pedal edema. NEUROLOGICAL: Gross neurological examination did not reveal any focal deficits. SKIN: No rashes. Assessment and plan -Rectosigmoid resection -COPD without any acute exacerbation patient quit smoking in 2003 -urinary retention requiring indwelling fisher catheter -GI prophylaxis -DVT prophylaxis: As per primary service -full code Plan: We will continue to follow with general surgery Continue flomax and trial void once epidural is removed Patient with increased distention and bloating and denies flatus or bowel movement, patient being started on Reglan, simethicone and continues on Reglan he is now having bowel movements and is being advanced from full liquid to regular as tolerated. PT/OT to eval to return home with [facility] on discharge continue to encourage IS 10 x per hour. Is encouraged to be up out of bed and he is tolerating activity Thank you for this consultation, we will continue to follow with surgery. The impression and plan of care has been dictated by Analilia Ruth, Nurse Practitioner as directed. Dr. Nicolle MD I have performed a history and physical examination and medical decision making of this patient, discussed the same with the dictator, and agree with the dictators assessment and plan as written, documented as a scribe. Based on total visit time, I have performed more than 50% of this visit. Objective - Vital Signs Vital signs: Vital Signs Temp 98.0 F 08/12/24 14:00 Pulse 93 08/12/24 14:00 Resp 18 08/12/24 14:00 BP 143/82 08/12/24 14:00 Pulse Ox 95 08/12/24 14:00 FiO2 Intake & Output 08/12/24 08/12/24 08/13/24 06:59 18:59 06:59 Output Total 325 300 Balance -325 -300 Output: Urine 325 300 Other: Voiding Method Indwelling Catheter # Voids 2 - Labs CBC & Chem 7: 08/11/24 05:55 08/11/24 05:55 Assessment and Plan Time with Patient: Less than 30
[2024-08-13 09:11] VITALS: BP 125/72; PULSE 74; TEMP 98.8
--- NOTE | 2024-08-13 11:48 | P.DS ---
Providers Date of admission: 08/06/24 07:02 Expected date of discharge: 08/13/24 Attending physician: Billy Rice Consults: 08/06/24 11:26 Consult Physician Routine Consulting Provider: Jigar Villavicencio Consult Reason/Comments: med management Do you want consulting provider notified?: Yes [facility] Course: Discharge diagnosis 1. Colon polyp status post lower anterior resection 2. Postoperative ileus can be an expected finding. Now resolved 3. 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 Dr. Rice did inform patient of pathology results Hospital course This is a 78-year-old male who is status post lower anterior resection for a colon polyp. He tolerated surgery well. He did develop a postoperative ileus. But is now tolerating diet. Having bowel movements. His pain is controlled. He is up and ambulating. He is afebrile. He is stable for discharge. Please refer to chart for any further details. Physician Rugby [employer] Footballer note has been reviewed by physician. Signing provider agrees with the documented findings, assessment, and plan of care. Patient Condition at Discharge: Stable Plan - Discharge Summary Discharge Rx Participant: Yes New Discharge Prescriptions: New Acetaminophen Tab [Tylenol] 1,000 mg PO Q6HR PRN #30 tablet PRN Reason: Pain Continue Multivitamin [Men's Multi-Vitamin] 1 tab PO DAILY Loratadine [Claritin] 10 mg PO DAILY Cholecalciferol [Vitamin D3 (25 Mcg = 1000 Iu)] 25 mcg PO DAILY Discharge Medication List Multivitamin [Men's Multi-Vitamin] 1 tab PO DAILY 10/14/16 [History] Cholecalciferol [Vitamin D3 (25 Mcg = 1000 Iu)] 25 mcg PO DAILY 08/01/24 [History] Loratadine [Claritin] 10 mg PO DAILY 08/01/24 [History] Acetaminophen Tab [Tylenol] 1,000 mg PO Q6HR PRN #30 tablet 08/13/24 [Rx] Follow up Appointment(s)/Ref[facility] [[facility]] - 1-2 Days Billy Rice MD [STAFF PHYSICIAN] - 10 Days Activity/Diet/Wound Care/Special Instructions: No lifting over 10 pounds Shower daily. No soaking or tub baths for 2 weeks Very light activity until you are reevaluated at your follow up appointment with your surgeon Discharge Disposition: HOME WITH HOME HEALTH SERVICES
--- NOTE | 2024-08-14 00:10 | PN ---
PROGRESS NOTE DATE OF SERVICE: 08/13/2024 SUBJECTIVE: This is a 78-year-old gentleman, who was admitted after low anterior resection. He is improving significantly. No chest pain. No palpitation. OBJECTIVE: VITAL SIGNS: Pulse 74, blood pressure 120/70, respirations 18. CHEST: Clear to auscultation. CARDIOVASCULAR: S1, S2. ABDOMEN: Soft, status post surgery. LABORATORY DATA: WBC normalized. ASSESSMENT: 1. Status post rectosigmoid resection. 2. Chronic obstructive pulmonary disease. 3. Urinary retention. 4. Elevated WBC, possibly reactive, improved. RECOMMENDATIONS: Recommend to continue current medications. Resume the home medications. Otherwise, closely follow with primary physician. Rest of the recommendations per Surgery. Further recommendations to follow. MMODL / IJN: [id number] /
== END 2024-08-13 13:49 | disposition home health service (06) | DRG 330 ==
LOC: 2ORMAIN 07:02 → 4SSUR 12:25
PROVIDERS: ADMIT Surgery; ATTEND Surgery
PROC: 0DBP0ZZ Excision of Rectum, Open Approach (ICD-10-PCS; 2024-08-06)
PROC: 0DBN0ZZ Excision of Sigmoid Colon, Open Approach (ICD-10-PCS; principal; 2024-08-06 08:45)
DX: D12.7 Benign neoplasm of rectosigmoid junction (principal); K56.7 Ileus, unspecified; J44.9 Chronic obstructive pulmonary disease, unspecified; K58.9 Irritable bowel syndrome, unspecified; Z85.828 Personal history of other malignant neoplasm of skin; Z87.891 Personal history of nicotine dependence
CPT/HCPCS: 80048; 80053; 83735; 85025; 88309; 93005; 94760

== ENCOUNTER → 2025-05-08 | Outpatient (CLI) | payer MEDICARE ==
[2025-05-08 18:15] LABS: HCT 43.7 % (39.6-50.0); HGB 14.3 g/dL (13.0-17.0); MCH 31.3 pg (27.0-32.0); MCHC 32.7 g/dL (32.0-37.0); MCV 95.6 FL (80.0-97.0); Mean Platelet Volume 10.7 FL (9.5-12.2); NRBC Per 100 WBC 0 X 10*3/uL (0.00-0.01); Platelet Count 342 X 10*3/uL (140-440); RBC 4.57 X 10*6/uL (4.40-5.60); RDW 12.6 % (11.5-14.5); WBC 9.23 X 10*3/uL (4.50-10.00)
== END | disposition home or self-care (01) ==
LOC: LABPAT 14:41
PROVIDERS: ATTEND Surgery
DX: K43.9 Ventral hernia without obstruction or gangrene (principal)
CPT/HCPCS: 85027; 86850; 86900; 86901; 93005

== ENCOUNTER 2025-05-14 05:33 | Inpatient (IN) | payer MEDICARE ==
[2025-05-13 08:48] VITALS: BMI 28.8
[2025-05-14] MEDS ORDERED: LIDOCAINE 1% (10MG/ML) FOR IV START INTRADERMA PRN (05:44)
[2025-05-14] MEDS: IV FLUID CONTINUATION 1,000 ML IV ONE ×2 (06:11→09:34)
[2025-05-14] MEDS: LACTATED RINGERS 1,000 ML IV SCH (06:40)
[2025-05-14] MEDS: ACETAMINOPHEN TAB 500 MG TAB PO PRN (06:40)
[2025-05-14] MEDS: MIDAZOLAM 2 MG/2 ML VIAL IV ONE (06:50)
[2025-05-14] MEDS: ONDANSETRON 4 MG/2 ML VIAL IVP STA (06:59)
[2025-05-14] MEDS: HEPARIN SODIUM,PORCINE 5,000 UNIT/ML 1 ML VIAL SQ PRN (06:59)
[2025-05-14] MEDS: DEXAMETHASONE SOD PHOSPHATE 4 MG/ML 1 ML VIAL IV ONE (06:59)
[2025-05-14] MEDS ORDERED: HYDROmorphone 0.5 MG/0.5 ML SYRINGE IVP PRN (07:00)
[2025-05-14] MEDS ORDERED: KETAMINE HCL IN 0.9 % NACL 50 MG/5 ML SYRINGE ONE (07:28)
[2025-05-14] MEDS ORDERED: PROPOFOL 10 MG/ML 20 ML VIAL IV ONE (07:28)
[2025-05-14] MEDS ORDERED: DEXAMETHASONE SOD PHOSPHATE 4 MG/ML 1 ML VIAL ONE (07:28)
[2025-05-14] MEDS ORDERED: GLYCOPYRROLATE 0.2 MG/ML 2 ML VIAL ONE (07:28)
[2025-05-14] MEDS ORDERED: ROCURONIUM 10 MG/ML (5 ML VIAL) IV ONE (07:28)
[2025-05-14] MEDS ORDERED: KETOROLAC 15 MG/ML 1 ML VIAL ONE (07:28)
[2025-05-14] MEDS ORDERED: NEOSTIGMINE 1 MG/ML 10 ML VIAL ONE (07:28)
[2025-05-14] MEDS ORDERED: fentaNYL (PF) 50 MCG/ML 2 ML AMP ONE (07:28)
[2025-05-14] MEDS ORDERED: SUCCINYLCHOLINE CHLORIDE 200 MG/10 ML VIAL IV ONE (07:28)
[2025-05-14] MEDS ORDERED: LIDOCAINE 1% INJ 10MG/ML (20 ML MDV) ONE (07:28)
[2025-05-14] MEDS ORDERED: ROPIVACAINE 5 MG/ML 30 ML VIAL ONE (07:28)
[2025-05-14] MEDS ORDERED: LIDOCAINE 4% LTA KIT (4 ML) TOPICAL ONE (07:28)
[2025-05-14] MEDS: ceFAZolin 2 GM in DEXTROSE 5% IN WATER 50 ML IVPB PRN (07:30)
[2025-05-14] MEDS: LIDOCAINE 1%-EPI 1:100,000 20 ML VIAL SQ ONE (07:54)
[2025-05-14] MEDS ORDERED: ONDANSETRON 4 MG/2 ML VIAL IVP PRN (08:44)
[2025-05-14] MEDS ORDERED: ACETAMINOPHEN TAB 325 MG TAB PO PRN (08:44)
[2025-05-14] MEDS ORDERED: HYDROmorphone 1 MG/ML 1 ML SYRINGE IVP PRN (08:44)
[2025-05-14] MEDS ORDERED: NALOXONE 0.4 MG/ML 1 ML VIAL IV PRN (08:44)
[2025-05-14] MEDS ORDERED: HYDROcodone/APAP 5-325MG 1 EACH TAB PO PRN (08:44)
[2025-05-14] MEDS: droPERidol 2.5 MG/ML VIAL IVP ONE (10:08)
[2025-05-14] MEDS: KETOROLAC 15 MG/ML 1 ML VIAL IVP SCH (11:53)
[2025-05-14] MEDS ORDERED: IPRATROPIUM-ALBUTEROL 3 ML NEB INHALATION PRN (13:01)
[2025-05-14] MEDS: PANTOPRAZOLE 40 MG/10 ML VIAL IVP SCH (13:39)
[2025-05-14] MEDS: IPRATROPIUM-ALBUTEROL 3 ML NEB INHALATION SCH (21:13)
--- NOTE | 2025-05-14 22:24 | CONS ---
CONSULTATION REASON FOR CONSULTATION: Advice regarding COPD and other medical issues, requested by Surgery. HISTORY OF PRESENT ILLNESS: This 79-year-old gentleman with a past medical history of multiple medical problems including asthma, COPD, bowel obstruction, underwent ventral hernia repair and there is no history of any fever, rigors or chills. This patient is drowsy postop at this time. PAST MEDICAL HISTORY: Reviewed include back surgery, history of COPD, ventral hernia. Rest of the history and chart is also reviewed. MEDICATIONS: Claritin. Doses and rest of medications reviewed. ALLERGIES: None. FAMILY HISTORY: History of asthma and COPD. SOCIAL HISTORY: Previous history of smoking. REVIEW OF SYSTEMS: Could not be taken. PHYSICAL EXAMINATION: VITAL SIGNS: Pulse 65, blood pressure 120/70, and respirations 16. HEENT: Conjunctivae normal. NECK: No jugular venous distention. CARDIOVASCULAR: S1, S2. RESPIRATIONS: A few scattered rhonchi. ABDOMEN: Soft, status post surgery. LEGS: No edema. NERVOUS SYSTEM: Nonfocal. LABORATORY DATA: Reviewed. ASSESSMENT: 1. Status post colon repair. 2. History of chronic obstructive pulmonary disease. 3. History of bowel obstruction. 4. History of back surgery, degenerative joint disease. RECOMMENDATIONS: This 79-year-old gentleman presented after surgery. At this time, I recommend to continue with the current medications. Resume the home medication, bronchodilators, DVT prophylaxis. We will follow the patient closely with you. Proton pump inhibitors. MMBLASL / JONATANN: [id number] /
[2025-05-15 07:12] LABS: Basophils # (A) 0.02 10*3/uL (0.00-0.10); Basophils % (A) 0.1 %; HCT 41.5 % (39.6-50.0); HGB 13.8 g/dL (13.0-17.0); Lymphocytes # (A) 2.09 10*3/uL (0.90-5.00); Lymphocytes % (A) 11.4 %; MCH 31.9 pg (27.0-32.0); MCHC 33.3 g/dL (32.0-37.0); MCV 96.1 fL (80.0-97.0); Mean Platelet Volume 9.9 fL (9.5-12.2); Monocytes # (A) 1.61 10*3/uL (0.20-1.00); Monocytes % (A) 8.8 %; Neutrophils # (A) 14.48 10*3/uL (1.80-7.70); Neutrophils % (A) 79.3 %; Platelet Count 319 10*3/uL (140-440); RBC 4.32 10*6/uL (4.40-5.60); RDW 12.9 % (11.5-14.5); WBC 18.27 10*3/uL (4.50-10.00)
[2025-05-15 07:20] LABS: African American GFR (CKD) 59 (>60 ml/min/1.73 sqM); Anion Gap 6 mmol/L; Blood Urea Nitrogen 30 mg/dL (9-20); Calcium 8.8 mg/dL (8.4-10.2); Carbon Dioxide 26 mmol/L (22-30); Chloride 107 mmol/L (98-107); Glucose 121 mg/dL (74-99); Magnesium 1.8 mg/dL (1.6-2.3); Non-African American GFR(CKD) 51 (>60 ml/min/1.73 sqM); Potassium 4.9 mmol/L (3.5-5.1); Sodium 139 mmol/L (137-145)
[2025-05-15] MEDS: SODIUM CHLORIDE 0.9% 1,000 ML IV SCH (07:56)
[2025-05-15] MEDS: ENOXAPARIN 40 MG/0.4 ML SYRINGE SQ SCH (07:57)
[2025-05-15] MEDS: TAMSULOSIN 0.4 MG CAP.ER.24H PO SCH (11:27)
[2025-05-15] MEDS: PIPERACILLIN-TAZOBACTAM 3.375 GM in SODIUM CHLORIDE 0.9% 100 ML IVPB SCH (11:27)
--- NOTE | 2025-05-15 11:57 | PN ---
PROGRESS NOTE DATE OF SERVICE: 05/15/2025 SUBJECTIVE: 79-year-old gentleman admitted after ventral hernia repair is improving significantly. No chest pain, no palpitation. PHYSICAL EXAMINATION: VITAL SIGNS: Pulse 71, blood pressure 139/72, and respirations 18. HEENT: Conjunctivae normal. NECK: No jugular venous distention. CARDIOVASCULAR: S1, S2. RESPIRATION: Few scattered rhonchi. ABDOMEN: Soft, status post surgery. EXTREMITIES: Legs, no edema. NERVOUS SYSTEM: Nonfocal. LABORATORY DATA: WBC 18.27. ASSESSMENT: 1. Status post ventral hernia repair. 2. Chronic obstructive pulmonary disease. 3. History of bowel obstruction. 4. History of back surgery. RECOMMENDATIONS: Recommend to continue current medications, continue symptomatic treatment. The patient is slightly short of breath. Optimize bronchodilator treatment. Otherwise, rest of the recommendations per Surgery. Recommend close followup with primary physician. DVT prophylaxis. MMODL / IJN: [id number] /
--- NOTE | 2025-05-15 13:16 | P.PN ---
Subjective Progress Note Date: 05/15/25 SURGICAL PROGRESS NOTE CHIEF COMPLAINT: Ventral hernia HISTORY OF PRESENT ILLNESS: Patient is postop day #1 status post ventral hernia repair. Patient sitting at bedside chair. He reports his pain is controlled. Denies any nausea or vomiting. He is having flatus. He is complaining of urinary retention. He required to be straight cathed x 2. Afebrile. WBC is up to 18 and creatinine is up at 1.3. PHYSICAL EXAM: VITAL SIGNS: Reviewed. GENERAL: Well-developed in no acute distress. ABDOMEN: Soft. Nondistended. Midline incision clean dry and intact NEUROLOGIC: Alert and oriented. Cranial nerves II through XII grossly intact. ASSESSMENT: 1. Ventral hernia status post ventral hernia repair 2. Urinary retention PLAN: -Continue pain management -Flomax added for urinary retention. Continue to check postvoid residuals. -Antibiotics added for leukocytosis -IV fluids added for acute kidney injury -Repeat labs in a.m. -Encourage patient ambulate -GI prophylaxis Protonix and DVT prophylaxis Lovenox Physician Metal Cleaner note has been reviewed by physician. Signing provider agrees with the documented findings, assessment, and plan of care. Objective - Vital Signs Vital signs: Vital Signs Temp 98.3 F 05/15/25 08:04 Pulse 75 05/15/25 10:29 Resp 19 05/15/25 08:04 BP 121/72 05/15/25 08:04 Pulse Ox 93 L 05/15/25 10:20 FiO2 Intake & Output 05/14/25 05/15/25 05/15/25 18:59 06:59 18:59 Intake Total 950 180 Output Total 60 520 Balance 890 -520 180 Weight 98.7 kg Intake: IV 950 Oral 180 Output: Drainage 40 20 Abdomen 40 20 Urine 500 Straight 500 Estimated Blood Loss 20 Other: Voiding Method Toilet Toilet Urinal Urinal - Labs CBC & Chem 7: 05/15/25 06:48 05/15/25 06:48 Labs: Abnormal Lab Results - Last 24 Hours (Table) 05/15/25 05/15/25 Range/Units 06:48 06:48 WBC 18.27 H (4.50-10.00) 10*3/uL RBC 4.32 L (4.40-5.60) 10*6/uL Immature Gran # 0.07 H (0.00-0.04) 10*3/uL Neutrophils # 14.48 H (1.80-7.70) 10*3/uL Monocytes # 1.61 H (0.20-1.00) 10*3/uL Eosinophils # 0.00 L (0.04-0.35) 10*3/uL BUN 30 H (9-20) mg/dL Creatinine 1.33 H (0.66-1.25) mg/dL Glucose 121 H (74-99) mg/dL
[2025-05-16 04:08] LABS: Basophils # (A) 0.07 10*3/uL (0.00-0.10); Basophils % (A) 0.5 %; Eosinophils % (A) 1.5 %; HCT 41.6 % (39.6-50.0); HGB 13.6 g/dL (13.0-17.0); Lymphocytes # (A) 2.89 10*3/uL (0.90-5.00); Lymphocytes % (A) 21.6 %; MCH 31.8 pg (27.0-32.0); MCHC 32.7 g/dL (32.0-37.0); MCV 97.2 fL (80.0-97.0); Mean Platelet Volume 10.2 fL (9.5-12.2); Monocytes # (A) 1.28 10*3/uL (0.20-1.00); Monocytes % (A) 9.6 %; Neutrophils % (A) 66.4 %; Platelet Count 310 10*3/uL (140-440); RBC 4.28 10*6/uL (4.40-5.60); RDW 13.3 % (11.5-14.5); WBC 13.39 10*3/uL (4.50-10.00)
[2025-05-16 04:20] LABS: African American GFR (CKD) 55 (>60 ml/min/1.73 sqM); Anion Gap 9 mmol/L; Blood Urea Nitrogen 29 mg/dL (9-20); Carbon Dioxide 24 mmol/L (22-30); Chloride 105 mmol/L (98-107); Glucose 94 mg/dL (74-99); Non-African American GFR(CKD) 47 (>60 ml/min/1.73 sqM); Potassium 4.2 mmol/L (3.5-5.1); Sodium 138 mmol/L (137-145)
[2025-05-16 08:04] VITALS: BP 118/71; PULSE 79; RESP 18; TEMP 98.5
--- NOTE | 2025-05-16 11:44 | P.DS ---
Providers Date of admission: 05/16/25 10:42 Expected date of discharge: 05/16/25 Attending physician: Billy Rice Consults: 05/14/25 08:46 Consult Physician Routine Consulting Provider: Jigar Villavicencio Consult Reason/Comments: Medical management Do you want consulting provider notified?: Yes [facility] Course: Discharge diagnosis 1. Ventral hernia status post ventral hernia repair 2. Urinary tension 3. Acute kidney injury Hospital course This is a 79-year-old male with a large ventral hernia he is status post ventral hernia repair. Patient tolerated surgery well. Pain is controlled. He did have urinary retention and required to be straight cathed. Patient tolerating diet. He did have a bowel movement. He reports that urinating without difficulty. He is afebrile. His pain is controlled. He is stable for discharge. Medicine service has cleared patient for discharge. Patient is stable for discharge. Will have patient follow-up with PCP to repeat kidney functions in 3 days. Please refer to chart for any further details. Physician Cloth Roll Winder note has been reviewed by physician. Signing provider agrees with the documented findings, assessment, and plan of care. Patient Condition at Discharge: Stable Plan - Discharge Summary Discharge Rx Participant: No New Discharge Prescriptions: New HYDROcodone/APAP 5-325MG [Argyle 5-325] 1 tab PO Q6HR PRN 2 Days #8 tab PRN Reason: Pain Amoxic-Pot Clav 875-125Mg [Augmentin 875-125] 1 tab PO Q12HR 7 Days #14 tab Continue Multivitamin [Men's Multi-Vitamin] 1 tab PO DAILY Loratadine [Claritin] 10 mg PO DAILY Cholecalciferol [Vitamin D3 (25 Mcg = 1000 Iu)] 25 mcg PO DAILY Acetaminophen Tab [Tylenol] 1,000 mg PO Q6HR PRN #30 tablet PRN Reason: Pain Discharge Medication List Multivitamin [Men's Multi-Vitamin] 1 tab PO DAILY 10/14/16 [History] Cholecalciferol [Vitamin D3 (25 Mcg = 1000 Iu)] 25 mcg PO DAILY 08/01/24 [History] Loratadine [Claritin] 10 mg PO DAILY 08/01/24 [History] Acetaminophen Tab [Tylenol] 1,000 mg PO Q6HR PRN #30 tablet 08/13/24 [Rx] Amoxic-Pot Clav 875-125Mg [Augmentin 875-125] 1 tab PO Q12HR 7 Days #14 tab 05/16/25 [Rx] HYDROcodone/APAP 5-325MG [Argyle 5-325] 1 tab PO Q6HR PRN 2 Days #8 tab 05/16/25 [Rx] Follow up Appointment(s)/Referral(s): Billy Rice MD [STAFF PHYSICIAN] - 05/21/25 2:40 pm Mihai Washington MD [Primary Care Provider] - 3 Days Activity/Diet/Wound Care/Special Instructions: No driving while taking Argyle No lifting over 10 pounds Shower daily. No soaking or tub baths for 2 weeks Very light activity until you are reevaluated at your follow up appointment with your surgeon Keep a log of PIPER drain output and bring with you to your follow-up appointment Milk/strip drains 2-3 times a day Patient to have repeat BMP in 2 to 3 days with PCP Discharge Disposition: HOME WITH HOME HEALTH SERVICES
--- NOTE | 2025-05-16 15:06 | PN ---
PROGRESS NOTE DATE OF SERVICE: 05/16/2025 SUBJECTIVE: This is a 79-year-old gentleman admitted after ventral hernia repair, also had COPD. No chest pain. No palpitations. No fever. PHYSICAL EXAMINATION: VITAL SIGNS: Pulse is 79, blood pressure 119/70, and respirations 18. CHEST: Few scattered rhonchi. ABDOMEN: Soft. Status post surgery. CARDIOVASCULAR: S1, S2. LABORATORY DATA: Noted. ASSESSMENT: 1. Status post ventral hernia repair. 2. Chronic obstructive pulmonary disease. 3. Possible chronic kidney disease, stage III. 4. History of bowel obstruction. 5. History of back surgery. RECOMMENDATIONS AND DISCUSSION: I recommend to continue current management and continue symptomatic treatment. Otherwise, I would recommend bronchodilators as well as followup labs CBC, BMP with primary physician, Dr. Mihai Washington. Further recommendations to follow. MMODL / IJN: [id number] /
--- NOTE | 2025-05-17 08:39 | P.ANPRN ---
Procedure Note - Anesthesia - Nerve Block Performed Bilateral Rectus Abdominis Single Time Out Performed: Yes Date of Procedure: 05/14/25 Procedure Start Time: 06:50 Procedure Stop Time: :57 Location of Patient: PreOp Indication: Acute Post-Operative Pain, Requested by Surgeon Sedation Type: Sedate with meaningful contact maintained Preparation: Sterile Prep Position: Supine Needle Types: Pajunk Ultrasound used to visualize needle placement: Yes Ultrasound used to observe medication spread: Yes Blood Aspirated: No Pain Paresthesia on Injection Noted: No Resistance on Injection: Normal Image Stored and Saved: Yes Events: Uneventful and Well Tolerated (Ropivacaine 0.5% 20 cc plus dexamethasone 4 mg given bilaterally)
--- NOTE | 2025-06-11 10:21 | P.OP ---
Date of Procedure: 05/14/25 Preoperative Diagnosis: Incisional hernia Postoperative Diagnosis: Incisional hernia Procedure(s) Performed: Diagnostic laparoscopy Open repair of incisional hernia Anesthesia: ADA Surgeon: Billy Rice Estimated Blood Loss (ml): 5 Pathology: none sent Condition: stable Disposition: PACU Operative Findings: 15 cm incisional hernia Description of Procedure: Patient was placed on the operative table in the supine position. He received general endotracheal tube anesthesia. His abdomen was prepped and draped you sterile fashion. The left upper quadrant a 5 mm optical trocar was placed under direct vision. The laparoscope was placed into the peritoneal cavity. After the abdomen was insufflated. There were extensive adhesions seen throughout the abdomen. Due to the adhesions of the side perform an open repair of incisional hernia. The trocar was removed. The skin was incised midline. I then use electrocautery the subcu tissue divided. The fascial defect was contained and almost the entire midline scar. The hernia measured approximate 15 cm length. The hernia was repaired by repairing the defect with [id number] 0 Ethibond suture. A piece of Prolene mesh was placed over top of the repair and secured with a secure strap tacker. A PIPER drain was placed over top of the mesh and brought out through a separate stab incision. Subcu tissue was closed with 0 Vicryl. Skin was closed with linh. Sterile dressing applied. Abdominal binder was applied. Patient sent to recovery room in stable condition.
== END 2025-05-16 14:44 | disposition home health service (06) | DRG 354 ==
LOC: OR 05:33 → 4SSUR 08:40 → OR 05-16 10:42 → 4SSUR 05-16 10:42
PROVIDERS: ADMIT Surgery; ATTEND Surgery
PROC: 0WUF0JZ Supplement Abdominal Wall with Synthetic Substitute, Open Approach (ICD-10-PCS; principal; 2025-05-16)
PROC: 0WJF4ZZ Inspection of Abdominal Wall, Percutaneous Endoscopic Approach (ICD-10-PCS; 2025-05-16)
DX: K43.0 Incisional hernia with obstruction, without gangrene (principal); N17.9 Acute kidney failure, unspecified; J44.89 Other specified chronic obstructive pulmonary disease; N18.30 Chronic kidney disease, stage 3 unspecified; K66.0 Peritoneal adhesions (postprocedural) (postinfection); Z53.31 Laparoscopic surgical procedure converted to open procedure; R33.8 Other retention of urine; Z87.891 Personal history of nicotine dependence
CPT/HCPCS: 64488; 80048; 83735; 85025; 94640; 94760